=== PATIENT | female | born 1970 | race Caucasian/White ===

== ENCOUNTER 2023-06-16 14:12 | Outpatient (CLI) | payer BC, SELFPAY | END 2023-06-16 14:13 | disposition home or self-care (01) | LOC: NFLDREF 06-17 00:57 | PROVIDERS: PCP Physician Assistant; Visit Provider Physician Assistant | DX: R30.0 Dysuria (principal) | CPT/HCPCS: 87086 ==

== ENCOUNTER 2023-06-19 11:51 | Emergency (ER) | payer BC, SELFPAY ==
[2023-06-19 12:14] VITALS: BP 140/97; PULSE 88; RESP 16; TEMP 37.1; O2SAT 95; BMI 29.0
--- NOTE | 2023-06-19 12:32 | ED_ITS ---
HPI - General Adult General Date Seen: 06/19/23 Chief complaint: Back Injury/Pain Stated complaint: Kidney stone Time Seen by Provider: 06/19/23 12:05 History of Present Illness HPI narrative: Pleasant 53-year-old female who is generally healthy presenting to the ER today with left flank pain. She has been experiencing left flank pain off and on since Tuesday, 5 days ago. She was seen in the urgent care on for these symptoms. She was noting dark colored urine suspicious for hematuria. But no other urinary symptoms. She had urinalysis that she reports showed hematuria but no infection. Medical record confirms that she had a urinalysis on 06/16 that showed hematuria but negative pyuria, negative nitrate). She was diagnosed presumptively with a kidney stone. At that time she was having only mild symptoms so she was discharged home. CT was not available in urgent care and they decided based on how she was doing it was reasonable to observe without transfer to the ER for imaging. Since the other day in the urgent care she has not seen any other visible blood. No other new urinary symptoms. She was having some mild symptoms at that point but also. Where she was asymptomatic. She had another severe way of intense pain that lasted a few hours on Tuesday night and felt again better yesterday with mild symptoms. She had another intense wave of pain overnight last night on Tuesday night into Tuesday morning. She had another wave of severe pain this morning that was so intense she vomited (nonbloody). No other symptoms. No fevers. No diarrhea. No dysuria, urgency, frequency. No fevers. She was having intense pain that brought her back to the ER this afternoon without she is here the pain is markedly improved and is now down to a 2/10. Related Data Home Medications Medication Instructions Recorded Confirmed venlafaxine 37.5 mg 37.5 mg PO DAILY 06/19/23 06/19/23 capsule,extended release 24 hr Previous Rx's Medication Instructions Recorded cephalexin 500 mg capsule 500 mg PO BID #10 caps 06/19/23 hydrocodone 5 mg-acetaminophen 325 1 tab PO Q4-6H PRN pain #14 tabs 06/19/23 mg tablet ondansetron 4 mg disintegrating 4 mg PO Q8H PRN nausea and 06/19/23 tablet vomiting #10 tabs tamsulosin 0.4 mg capsule (Flomax) 0.4 mg PO DAILY #7 caps 06/19/23 Allergies Allergy/AdvReac Type Severity Reaction Status Date / Time No Known Drug Allergies Allergy Verified 06/19/23 12:13 [facility] Medical History Pneumonia ?J18.9 - Pneumonia, unspecified organism (ICD-10) Social History Smoking Status: Never smoker How often do you have a drink containing alcohol: monthly or less AUDIT-C Alcohol total score: 1 Non-prescribed substance use: denies use Exam Narrative: Exam Narrative: Constitutional: Appears well-developed and well-nourished. Alert. Conversant. Non toxic. HENT: Head: Atraumatic. Nose: Nose normal. Mouth/Throat: Oral mucosa is clear and moist. no trismus. Eyes: Conjunctivae normal. EOM normal. Pupils equal, round, and reactive to light. No scleral icterus. Neck: Normal range of motion. Neck supple. No tracheal deviation present. Cardiovascular: Normal rate, regular rhythm. No gallop. No friction rub. No murmur heard. Pulmonary/Chest: Effort normal. No stridor. No respiratory distress. No rib tenderness. Abdominal: Soft. Bowel sounds normal. No distension. No mass. Mild left CVA tenderness. No LQ tenderness. No mass. No rash. No rebound. No guarding. Musculoskeletal: RUE: Normal range of motion. No tenderness. No deformity LUE: Normal range of motion. No tenderness. No deformity RLE: Normal range of motion. No edema. No tenderness. No deformity LLE: Normal range of motion. No edema. No tenderness. No deformity Neurological: Alert and oriented to person, place, and time. Normal strength. CN II-VII intact. No sensory deficit. GCS eye subscore is 4. GCS verbal subscore is 5. GCS motor subscore is 6. Normal coordination Skin: Skin is warm and dry. No rash noted. No pallor. Normal capillary refill. Psychiatric: Normal mood. Normal affect. Const: Vital Signs, click to edit/add: Vital Signs - 24 hr 06/19/23 12:14 06/19/23 15:40 Temperature 98.8 F Pulse Rate [Pulse Oximeter] 88 81 Respiratory Rate 16 Blood Pressure [Le ft Upper Arm] 140/97 H 155/96 H Pulse Oximetry 95 98 Oxygen Delivery Me thod Room Air Course Course ED Course: Recheck- 30-doing well. Pain-free. Sitting up in bed doing computer work. Discussed CT findings. There is a fairly large stone. Consult placed through the [email or web address] access system try to contact outpatient Urology, since her primary care provider is through [email or web address]. Vital Signs Vital signs: Initial Vital Signs Temperature 98.8 F 06/19/23 12:14 Temperature Source Temporal Artery Scan 06/19/23 12:14 Pulse Rate 88 06/19/23 12:14 Respiratory Rate 16 06/19/23 12:14 Blood Pressure 140/97 H 06/19/23 12:14 Blood Pressure Mean 111 H 06/19/23 12:14 Blood Pressure Position Sitting 06/19/23 12:14 Pulse Oximetry 95 06/19/23 12:14 Oxygen Delivery Method Room Air 06/19/23 12:14 Vital Signs Temperature 98.8 F 06/19/23 12:14 Pulse Rate 88 06/19/23 12:14 Respiratory Rate 16 06/19/23 12:14 Blood Pressure 140/97 H 06/19/23 12:14 Pulse Oximetry 95 06/19/23 12:14 Oxygen Delivery Method Room Air 06/19/23 12:14 Temperature 98.8 F 06/19/23 12:14 Pulse Rate 81 06/19/23 15:40 Respiratory Rate 16 06/19/23 12:14 Blood Pressure 155/96 H 06/19/23 15:40 Pulse Oximetry 98 06/19/23 15:40 Oxygen Delivery Method Room Air 06/19/23 12:14 Medications Administered Medications: Discontinued Medications Generic Name Dose Route Start Last Admin Trade Name Freq PRN Reason Stop Dose Admin Cephalexin HCl 500 mg 06/19/23 14:43 06/19/23 14:48 Cephalexin 500 Mg Capsule PO 06/19/23 14:44 500 mg ONCE ONE Administration Medical Decision Making MDM Narrative Medical decision making narrative: This patient presents with right flank and abdominal pain, as well as hematuria in clinic a few days ago. Differential Diagnosis considered includes: Ureterolithiasis, UTI, pyelonephritis, AAA, colitis, diverticulitis, volvulus, appendicitis, cholecystitis, among others. At this point, the evaluation indicates that ureterolithiasis is the cause of the patient's symptoms. The patient is not febrile and has no leukocytosis but does have pyuria on her urinalysis which could mean possible evolving infection. Will treat with antibiotics for UTI. At this point there is clearly no evidence for sepsis or organ dysfunction from infection. The patient's pain is well controlled in ED. The patient is hemodynamically stable in ED. I think the patient is safe for discharge. CT scan shows a fairly large 8 mm stone in the proximal right ureter with some associated hydronephrosis and perinephric stranding. Discussed with urology through the [facility]. They feel they would be able to get the patient in for an expeditious outpatient clinic follow-up to deal with her fairly large proximal stone. Patient is provided with Urology contact information and will call tomorrow. The plan is discharge to home with recheck by urology.They will return to the ED right away if symptoms worsen (e.g Return immediately for fevers greater than 102, increasing pain, other new symptoms develop). Ureterolithiasis precautions for home. Prescriptions for pain control, nausea control, and flomax were provided. The patient's questions were answered. Lab Data Labs: Lab Results 06/19/23 06/19/23 Range/Units 12:20 13:38 WBC 8.10 (4.50-11.00) K/uL RBC 4.53 (4.00-5.20) m/uL Hgb 14.2 (12.0-16.0) gm/dL Hct 42.0 (33.0-51.0) % MCV 93 (80-100) fL MCH 31 (26-34) pg MCHC 34 (32-36) gm/dL RDW Coeff of Sergio 11.8 (11.5-15.5) % Plt Count 264 (140-440) K/uL Neut % (Auto) 73.2 H (42.0-72.0) % Lymph % (Auto) 16.3 L (20-44) % [facility] % (Auto) 8.1 (0.0-11.0) % Eos % (Auto) 2.1 (0.0-7.0) % Baso % (Auto) 0.2 (0.0-3.0) % Neut # (Auto) 5.90 (1.7-7.0) K/uL Lymph # (Auto) 1.30 (0.90-2.90) K/uL [facility] # (Auto) 0.70 (0.00-0.90) K/UL Eos # (Auto) 0.17 (0.00-0.50) K/uL Baso # (Auto) 0.02 (0.00-0.30) K/uL Abs Immat Gran (auto) 0.01 (0.00-0.30) K/uL Imm/Tot Granulo (auto) 0.1 % Sodium 140 (135-149) mmol/L Potassium 5.1 (3.6-5.1) mmol/L Chloride 103 (96-114) mmol/L Carbon Dioxide 27 (20-32) mmol/L Anion Gap 10 (7-15) mEq/L BUN 22 (7-30) mg/dL Creatinine 1.4 (0.5-1.5) mg/dL Estimated Creat Clear 44.15 Estimated GFR 44 ml/min Glucose 100 (60-115) mg/dL Calcium 9.7 (8.4-10.6) mg/dL Urine Color Yellow (Yellow) Urine Appearance Cloudy A (Clear) Urine pH 6.0 (5.0-8.5) Ur Specific [place] >= 1.030 (1.000-1.030) Urine Protein 2+ A (Negative) Urine Glucose (UA) Negative (Negative) Urine Ketones Negative (Negative) Urine Blood 3+ A (Negative) Urine Nitrite Negative (Negative) Urine Bilirubin Negative (Negative) Urine Urobilinogen 0.2 (0.2-1.0) Ur Leukocyte Esterase Trace A (Negative) Urine RBC >100 A (0-2) Urine WBC 25-50 A (0-5) Ur Squamous Epith Cells Few (None-Few) Urine Bacteria Few A (None) Imaging Data CT scan - abdomen: Attestation: I have reviewed the pertinent imaging results. Radiologist's impression: Kidneys: 8 mm obstructing stone at the left ureteropelvic junction (2; 51). Associated mild upstream left hydronephrosis is, left renal edema and perinephric fat stranding consistent with obstructive uropathy. Nonobstructing 6 mm left lower pole minor caliceal stone. IMPRESSION: 8 mm obstructing stone at the left ureteropelvic junction with associated findings consistent with obstructive uropathy described above. 6 mm nonobstructing left lower pole minor calyx nephrolith. Discharge Plan Discharge Clinical Impression: Pyuria, Kidney stone Patient Disposition: Home, Self-Care Condition: Stable Instructions: Kidney Stones (ED) Additional Instructions: Please call the [place] u[facility] office phone number tomorrow morning at 8:00 a.m.. Call [phone]. Tell the receptionist scheduler that you were in the ER today and that we had discussed your case with the on-call urologist (Dr. Pope). Tell the receptionist scheduler that you need an ER follow-up appointment to be seen in one of the urology clinics within the next 1-2 days to be rechecked for your kidney stone because of its size. Please return to the ER right away if you have uncontrolled pain, high fever, nausea vomiting, weakness, or other signs of worsening illness. Your urine sample shows week signs of a possible bladder infection. We are going to put you on antibiotics to prevent this from getting any worse. Remember if you have any signs of fever or chills, you should return to the ER right away for re-evaluation. Start taking cephalexin 500 mg twice daily for the next 5 days to prevent worsening Urinary infection Use Flomax once daily to help give your kidney stone a better chance to pass. To control your pain you can use [id number] medications such as Tylenol or ibuprofen. For severe pain uncontrolled by those meds, use the prescription pain killer ([place]). Use caution with [place] because is can cause drowsiness, constipation, and can be addictive. Use Zofran if needed for nausea. Prescriptions: New tamsulosin [Flomax] 0.4 mg capsule 0.4 mg PO DAILY Qty: 7 2RF cephalexin 500 mg capsule 500 mg PO BID Qty: 10 0RF ondansetron 4 mg tablet,disintegrating 4 mg PO Q8H PRN (Reason: nausea and vomiting) Qty: 10 0RF hydrocodone-acetaminophen 5-325 mg tablet 1 tab PO Q4-6H PRN (Reason: pain) Qty: 14 0RF No Action venlafaxine 37.5 mg capsule,extended release 24hr 37.5 mg PO DAILY Follow Up/Referrals: Provider,Not a Local [Referring] - Stand Alone Forms: [facility] Info Instructions
[2023-06-19 12:36] LABS: Appearance Urine Cloudy (Clear); Bilirubin Urine Negative (Negative); Blood Urine 3+ (Negative); Color Urine Yellow (Yellow); Glucose Urine Negative (Negative); Ketones Urine Negative (Negative); Leukocyte Esterase Urine Trace (Negative); Nitrite Urine Negative (Negative); Protein Urine 2+ (Negative); Specific Gravity Urine >= 1.030 (1.000-1.030); Urobilinogen Urine 0.2 (0.2-1.0)
[2023-06-19 12:51] LABS: Bacteria Urine Few; RBC Urine >100 (0-2); Squamous Epithelial Cell Urine Few (None-Few); WBC Urine 25-50 (0-5)
--- NOTE | 2023-06-19 12:54 | CRLHL7_ITS ---
For Patients: As a result of the Century Cures Act, medical imaging exams and procedure reports are released immediately into your electronic medical record. You may view this report before your referring provider. If you have questions, please contact your health care provider. INDICATION: Left flank and left lower quadrant pain. TECHNIQUE: CT abdomen and pelvis without contrast. COMPARISON: None. FINDINGS: The study is performed without intravenous contrast. This limits sensitivity for detection of abdominal/pelvic pathology, including pathology of the vasculature (specifically evaluation of possible vascular thromboembolism, arterial dissection, stenosis or occlusion), the integrity of the bowel (including bowel wall enhancement) and solid viscera (including detection of focal lesions within the viscera). If there is ongoing concern for otherwise occult pathology such as this, based on the clinical presentation of the patient, consider the risk/benefit of a study with intravenous contrast. Lower chest: Unremarkable. Liver: Normal in size and attenuation. No suspicious masses. Gallbladder and bile ducts: No stones or inflammation. No biliary dilatation. Pancreas: Unremarkable. No mass or inflammation. Spleen: Normal in size. No masses. Adrenal glands: Normal in size. No nodules. Kidneys: 8 mm obstructing stone at the left ureteropelvic junction (2; 51). Associated mild upstream left hydronephrosis is, left renal edema and perinephric fat stranding consistent with obstructive uropathy. Nonobstructing 6 mm left lower pole minor caliceal stone. GI tract: Unremarkable. Normal in caliber. No sign of mass or inflammation. Normal appendix. Vasculature: Abdominal aorta is normal in caliber. Lymph nodes: No lymphadenopathy. Peritoneum/Abdominal Wall: Unremarkable. No sign of mass or infiltration. No free air or significant free fluid. Pelvis: Unremarkable. No pelvic masses. Bones: Unremarkable for age. IMPRESSION: 8 mm obstructing stone at the left ureteropelvic junction with associated findings consistent with obstructive uropathy described above. 6 mm nonobstructing left lower pole minor calyx nephrolith. Please note that evaluation of the vasculature, bowel and solid viscera is limited without intravenous contrast, as discussed above. Please note that all CT scans at this facility use dose modulation, iterative reconstruction, and/or weight-based dosing when appropriate to reduce radiation dose to as low as reasonably achievable. Dictated by Kris Alberto MD @ 06/19/2023 1:50:26 PM (Electronically Signed)
[2023-06-19 14:05] LABS: Basophils Absolute Auto 0.02 K/uL (0.00-0.30); Basophils Percent Auto 0.2 % (0.0-3.0); Eosinophils Absolute Auto 0.17 K/uL (0.00-0.50); Eosinophils Percent Auto 2.1 % (0.0-7.0); Hemoglobin* 14.2 gm/dL (12.0-16.0); Immature Granulocytes Abs Auto 0.01 K/uL (0.00-0.30); Immature Granulocytes Pct Auto 0.1 %; Lymphocytes Percent Auto 16.3 % (20-44); Mean Corpuscular HGB Conc 34 gm/dL (32-36); Mean Corpuscular Hemoglobin 31 pg (26-34); Mean Corpuscular Volume 93 fL (80-100); Monocytes Percent Auto 8.1 % (0.0-11.0); Neutrophils Percent Auto 73.2 % (42.0-72.0); Platelet Count* 264 K/uL (140-440); RDW Coefficient of Variation % 11.8 % (11.5-15.5); Red Blood Count 4.53 m/uL (4.00-5.20)
[2023-06-19 14:08] LABS: Slide Review Reflex No
[2023-06-19 14:21] LABS: Chloride* 103 mmol/L (96-114); Sodium* 140 mmol/L (135-149)
[2023-06-19 14:22] LABS: Potassium* 5.1 mmol/L (3.6-5.1)
[2023-06-19 14:24] LABS: Anion Gap 10 mEq/L (7-15); Carbon Dioxide* 27 mmol/L (20-32); Creatinine* 1.4 mg/dL (0.5-1.5); Est. Creatinine Clearance* 44.15; Estimated Glomerular Filt Rate 44 ml/min
[2023-06-19 14:25] LABS: Blood Urea Nitrogen* 22 mg/dL (7-30); Calcium* 9.7 mg/dL (8.4-10.6); Glucose* 100 mg/dL (60-115)
[2023-06-19] MEDS: cephALEXin 500 MG CAPSULE PO (14:48)
[2023-06-19 15:40] VITALS: BP 155/96; PULSE 81; O2SAT 98
== END 2023-06-19 15:45 | disposition home or self-care (01) ==
PROVIDERS: Emergency Provider Emergency Medicine; PCP Family Medicine
DX: R82.81 Pyuria (principal); N20.0 Calculus of kidney
CPT/HCPCS: 36415; 74176; 80048; 81001; 85025; 87086; 99284; A9270

== ENCOUNTER 2024-03-09 17:15 | Emergency (ER) | payer BC, SELFPAY ==
[2024-03-09 17:23] VITALS: BP 166/102; PULSE 86; RESP 16; TEMP 37.4; O2SAT 97; BMI 29.9
--- NOTE | 2024-03-09 18:42 | ED.GENADULT ---
HPI - General Adult General Time Seen by Provider: 18:42 Date Seen: 03/09/24 Chief complaint: Headache/Migraine Stated complaint: Headache 9 hours, nausea Time Seen by Provider: 03/09/24 18:18 Source: patient and RN notes reviewed Mode of arrival: ambulatory Limitations: no limitations History of Present Illness HPI narrative: This 54-year-old female is coming in with a severe headache that started with a coughing spell this morning. She states she went from no headache to severe headache. He it is in the back of her head and goes into both sides, she feels in the front as well. It is worse in the back of her head. She cannot say that she has neck pain per se but there does seem to be some discomfort in her neck when ask her to move her neck. She notes no double vision, no blurry vision. She has had no numbness tingling or weakness in her extremities. Her arms and legs have been fine. She does not have significant underlying headache disorder, no history of migraine disorder. The headache started about 830 this morning, has been present for about 9 hours. She has had a couple episodes of emesis with it. Patient took cold medicine with Tylenol in it around 2:00 p.m. today. She had taken Advil and Tylenol about 45 minutes prior to this coughing spell that initiated her headache. She did go to her doctor and had COVID testing on Tuesday which was negative. She also tested a week ago which was negative. She did not have any labs or x-ray imaging done per her report, she stated the provider did not think it was necessary, thought she had a viral upper respiratory infection. She has felt clammy since this headache started. No fevers noted. Related Data Home Medications ?Medication ?Instructions ?Recorded ?Confirmed venlafaxine 37.5 mg 37.5 mg PO DAILY 06/19/23 03/09/24 capsule,extended release 24 hr Allergies Allergy/AdvReac Type Severity Reaction Status Date / Time No Known Drug Allergies Allergy Verified 02/28/24 14:27 Review of Systems Status of ROS: Reports: 6 or more systems reviewed and unremarkable except as noted in History and below [facility] Medical History Pneumonia ?J18.9 - Pneumonia, unspecified organism (ICD-10) Social History Smoking Status: Never smoker How often do you have a drink containing alcohol: monthly or less AUDIT-C Alcohol total score: 1 Non-prescribed substance use: denies use Exam Const: Vital Signs, click to edit/add: Vital Signs - 24 hr 03/09/24 17:23 03/09/24 18:48 Temperature 99.4 F Pulse Rate [Pulse Oximeter] 86 Respiratory Rate 16 Blood Pressure [Ri ght Upper Arm] 166/102 H Pulse Oximetry 97 98 Oxygen Delivery Me thod Room Air Mariel is a 54-year-old female that is alert, interactive, no apparent distress. She does look like she is mildly uncomfortable but is still able to carry on a conversation, is very pleasant. Pupils are equal round, conjugate gaze, sclera clear. TMs canals are normal. No drainage from nares. Oropharynx normal. Symmetrical facial function. Neck is supple, no adenopathy, no masses but she does state it increases her headache. Lungs are clear, good air entry, no wheezing or crackles, no tachypnea, she is able to sit up. CV regular rate and rhythm, no murmur, normal S1-S2, no S3-S4. Abdomen is soft, nontender, nondistended, no organomegaly. No focal deficits in her arms or legs, she was ambulatory into the ED of her own accord. Documenting provider has reviewed patient's vital signs: yes Course Course ED Course: Patient seemingly has a cough headache, do need to do head imaging, will do noncontrast head CT followed by CT angio of her head neck. Will get full complement of labs. Will work on pain management. Given that this certainly could be dissection or aneurysm, will avoid Toradol at this point. Reevaluation(s) Time of Reevaluation #1: 20:14 Reevaluation #1: Have reviewed CT imaging reports with patient and labs. Would peer that she has acute sinusitis. Thankfully there is no evidence of any intracranial bleeding, no dissection or vascular abnormality seen. D-dimer did come back normal as well. Her headache did improve some with morphine. We will now give her Toradol. Reviewed that she needs antibiotics, treatment of sinusitis with antibiotics will help with her headache. Her viral triple swab is reviewed and is negative. Will plan on discharge to home with course of Augmentin from [facility]. Vital Signs Vital signs: Initial Vital Signs Temperature 99.4 F 03/09/24 17:23 Temperature Source Temporal Artery Scan 03/09/24 17:23 Pulse Rate 86 03/09/24 17:23 Respiratory Rate 16 03/09/24 17:23 Blood Pressure 166/102 H 03/09/24 17:23 Blood Pressure Mean 123 H 03/09/24 17:23 Blood Pressure Position Sitting 03/09/24 17:23 Pulse Oximetry 97 03/09/24 17:23 Oxygen Delivery Method Room Air 03/09/24 17:23 Vital Signs Temperature 99.4 F 03/09/24 17:23 Pulse Rate 86 03/09/24 17:23 Respiratory Rate 16 03/09/24 17:23 Blood Pressure 166/102 H 03/09/24 17:23 Pulse Oximetry 97 03/09/24 17:23 Oxygen Delivery Method Room Air 03/09/24 17:23 Temperature 99.4 F 03/09/24 17:23 Pulse Rate 86 03/09/24 17:23 Respiratory Rate 16 03/09/24 17:23 Blood Pressure 166/102 H 03/09/24 17:23 Pulse Oximetry 98 03/09/24 18:48 Oxygen Delivery Method Room Air 03/09/24 17:23 Medications Administered Medications: Discontinued Medications Generic Name Dose Route Start Last Admin Trade Name Freq PRN Reason Stop Dose Admin Sodium Chloride 500 mls @ 500 mls/hr 03/09/24 18:50 03/09/24 20:04 0.9 % Sodium Chloride 500 Ml IV 03/09/24 19:49 Infused .Q1H ONE Infusion Ketorolac Tromethamine 15 mg 03/09/24 20:13 03/09/24 20:18 Ketorolac 15 Mg/Ml Inj IVP 03/09/24 20:14 15 mg ONCE ONE Administration Morphine Sulfate 4 mg 03/09/24 18:50 03/09/24 19:04 Morphine 4 Mg/Ml Inj IVP 03/09/24 18:51 4 mg ONCE ONE Administration Ondansetron HCl 4 mg 03/09/24 18:50 03/09/24 19:03 Ondansetron 2 Mg/Ml Inj IVP 03/09/24 18:51 4 mg ONCE ONE Administration Medical Decision Making Lab Data Labs: Lab Results 03/09/24 03/09/24 Range/Units 18:53 19:13 WBC 8.41 (4.50-11.00) K/uL RBC 4.52 (4.00-5.20) m/uL Hgb 14.2 (12.0-16.0) gm/dL Hct 43.1 (33.0-51.0) % MCV 95 (80-100) fL MCH 31 (26-34) pg MCHC 33 (32-36) gm/dL RDW Coeff of Sergio 12.6 (11.5-15.5) % Plt Count 247 (140-440) K/uL Neut % (Auto) 74.2 H (42.0-72.0) % Lymph % (Auto) 15.0 L (20-44) % [place] % (Auto) 9.4 (0.0-11.0) % Eos % (Auto) 1.1 (0.0-7.0) % Baso % (Auto) 0.2 (0.0-3.0) % Neut # (Auto) 6.20 (1.7-7.0) K/uL Lymph # (Auto) 1.30 (0.90-2.90) K/uL [place] # (Auto) 0.80 (0.00-0.90) K/UL Eos # (Auto) 0.09 (0.00-0.50) K/uL Baso # (Auto) 0.02 (0.00-0.30) K/uL Abs Immat Gran (auto) 0.01 (0.00-0.30) K/uL Imm/Tot Granulo (auto) 0.1 % INR 0.99 (0.91-1.10) APTT 31 (23-33) Seconds D-Dimer Quant (PE/DVT) 0.24 (0.00-0.50) ug/ml Sodium 137 (135-149) mmol/L Potassium 4.0 (3.6-5.1) mmol/L Chloride 100 (96-114) mmol/L Carbon Dioxide 27 (20-32) mmol/L Anion Gap 10 (7-15) mEq/L BUN 16 (7-30) mg/dL Creatinine 0.7 (0.5-1.5) mg/dL Estimated Creat Clear 84.01 Estimated GFR 101 ml/min Glucose 113 (60-115) mg/dL Calcium 9.5 (8.4-10.6) mg/dL Total Bilirubin 0.5 (0.1-1.5) mg/dL AST 31 (12-35) U/L ALT 30 (4-35) U/L Alkaline Phosphatase 34 L (40-150) U/L C-Reactive Protein 3.8 H (0.5-1.0) mg/dL Total Protein 8.0 (6.0-8.3) g/dL Albumin 5.0 (3.3-5.0) g/dL SARS-CoV-2 (PCR) Negative SARS-CoV-2 (Negative) Influenza Type A (PCR) Negative PCR FLU A (Negative) Influenza Type B (PCR) Negative PCR FLU B (Negative) RSV (PCR) Negative PCR RSV (Negative) Imaging Data CT scan - head: Attestation: I have reviewed the pertinent imaging results. Radiologist's impression: Patient: MARIEL PIERSON Facility:?[facility] Patient ID:?[id number] Site Patient ID:?[id number]. Site :?[id number] Study:?CT-Head W/O-03/09/2024 7:28:32 PM Ordering Physician:Cynthia Herrera Final Report: Indication: Technique: CT of the brain was performed without intravenous contrast. Comparison: None relevant available at this institution. Findings: No acute blurring of the phan-white differentiation. There is no intracranial hemorrhage. The ventricles are proportionate to the cerebral sulci. The 4th ventricle is midline. Basal cisterns appear patent. No abnormal extra-axial fluid collection identified. There is no intracranial mass, mass effect or midline shift identified. No depressed calvarial fracture. Mild paranasal sinus mucosal disease with air-fluid levels in the maxillary sinuses. Impression: 1. No acute intracranial process. 2. Mild paranasal sinus mucosal disease with air-fluid levels. Correlate for acute sinusitis. Please note that all CT scans at this facility use dose modulation, iterative reconstruction, and/or weight-based dosing when appropriate to reduce radiation dose to as low as reasonably achievable. Dictated by Magnus Moeller MD @ 03/09/2024 7:49:02 PM (Electronic Signature) CT- Other: Attestation: I have reviewed the pertinent imaging results. Radiologist's impression: Patient: MARIEL PIERSON Facility:?[facility] Patient ID:?[id number] Site Patient ID:?[id number]. Site :?1970 Study:?CT-Head Angio W/ 95CC [id number]/25/2024 7:28:23 PM Ordering Physician:?Eric Herrera Preliminary Report: Preliminary Report: : CTA head: No proximal intracranial arterial occlusions, filling defects or high-grade stenoses. CTA neck: No high-grade stenosis or filling defects are identified in the cervical carotid systems or cervical vertebral arteries. No dissection identified. Dictated by Maguns Moeller MD @ 03/09/2024 7:46:20 PM Read by:?Magnus Moeller MD @03/09/2024 7:46:41 PM Discharge Plan Discharge Clinical Impression: Headache Qualifiers: Headache type: primary cough headache Qualified Code(s): G44.83 - Primary cough headache Sinusitis Qualifiers: Sinusitis location: maxillary Chronicity: acute Recurrence: non-recurrent Qualified Code(s): J01.00 - Acute maxillary sinusitis, unspecified Patient Disposition: Home, Self-Care Condition: Stable Instructions: Sinusitis (ED), General Headache (ED) Additional Instructions: Start Augmentin 875 mg and take twice day for a total of 10 days to treat sinusitis. Do recommend getting a nasal steroid such is fluticasone or other [id number] nasal steroid, follow package directions for use in use for the next 1-2 weeks. Can use other [id number]-[id number] cough and cold medicines her directions. May need some ongoing treatment with Tylenol and or ibuprofen, follow bottle directions for dosing but be careful to not overdose of using other cold medicines that contain these. If you are not improving over the next week, feel you are worsening at any point or have further concerns, please seek re-evaluation. Your headache may persist for a while until treatment of the sinusitis is improving. Activity Level: Activity as Tolerated Prescriptions: No Action venlafaxine 37.5 mg capsule,extended release 24hr 37.5 mg PO DAILY Follow Up/Referrals: Re Miguel MD [Primary Care Provider] - Stand Alone Forms: [employer] Info Instructions
[2024-03-09 18:48] VITALS: O2SAT 98
--- NOTE | 2024-03-09 18:48 | CRLHL7_ITS ---
For Patients: As a result of the Century Cures Act, medical imaging exams and procedure reports are released immediately into your electronic medical record. You may view this report before your referring provider. If you have questions, please contact your health care provider. Indication: Technique: CT of the brain was performed without intravenous contrast. Comparison: None relevant available at this institution. Findings: No acute blurring of the phan-white differentiation. There is no intracranial hemorrhage. The ventricles are proportionate to the cerebral sulci. The 4th ventricle is midline. Basal cisterns appear patent. No abnormal extra-axial fluid collection identified. There is no intracranial mass, mass effect or midline shift identified. No depressed calvarial fracture. Mild paranasal sinus mucosal disease with air-fluid levels in the maxillary sinuses. Impression: 1. No acute intracranial process. 2. Mild paranasal sinus mucosal disease with air-fluid levels. Correlate for acute sinusitis. Please note that all CT scans at this facility use dose modulation, iterative reconstruction, and/or weight-based dosing when appropriate to reduce radiation dose to as low as reasonably achievable. Dictated by Magnus Moeller MD @ 03/09/2024 7:49:02 PM (Electronically Signed)
--- NOTE | 2024-03-09 18:59 | CRLHL7_ITS ---
For Patients: As a result of the Century Cures Act, medical imaging exams and procedure reports are released immediately into your electronic medical record. You may view this report before your referring provider. If you have questions, please contact your health care provider. CLINICAL HISTORY: Severe headache after coughing. TECHNIQUE: Standard helical CT image acquisition through the neck was performed after intravenous contrast bolus enhancement. 3D and MIP reconstructions were performed at a separate workstation and permanently archived. COMPARISON: None available. FINDINGS: The origins of the great vessels from the aortic arch are patent. The common carotid arteries are patent. No significant luminal stenoses of the proximal ICAs by NASCET criteria. The more distal cervical segments of the ICAs are patent. The origins and cervical segments of the vertebral arteries are patent. IMPRESSION: Patent cervical arterial vasculature without hemodynamically significant luminal stenosis. Please note that all CT scans at this facility use dose modulation, iterative reconstruction, and/or weight-based dosing when appropriate to reduce radiation dose to as low as reasonably achievable. Dictated by Yaakov Faustin MD @ 03/10/2024 12:19:44 PM (Electronically Signed)
--- NOTE | 2024-03-09 18:59 | CRLHL7_ITS ---
For Patients: As a result of the Century Cures Act, medical imaging exams and procedure reports are released immediately into your electronic medical record. You may view this report before your referring provider. If you have questions, please contact your health care provider. CLINICAL HISTORY: Severe headache after coughing. TECHNIQUE: Standard helical CT image acquisition through the head following the administration of intravenous contrast was performed. 3D and MIP reconstructions were performed at a separate workstation and permanently archived. COMPARISON: None available. FINDINGS: No intracranial proximal large vessel occlusion or flow-limiting luminal stenosis. No evidence of cerebral aneurysm. No findings to suggest an arterial-venous shunting lesion. The major dural venous sinuses and deep venous system are patent. IMPRESSION: No intracranial proximal large vessel occlusion, flow-limiting luminal stenosis, or cerebral aneurysm. Please note that all CT scans at this facility use dose modulation, iterative reconstruction, and/or weight-based dosing when appropriate to reduce radiation dose to as low as reasonably achievable. Dictated by Yaakov Faustin MD @ 03/10/2024 12:21:53 PM (Electronically Signed)
[2024-03-09] MEDS: ONDANSETRON 2 MG/ML inj 4 MG IVP (19:03)
[2024-03-09] MEDS: 0.9 % SODIUM CHLORIDE 500 ML 500 ML IV (19:03)
[2024-03-09] MEDS: MORPHINE 4 MG/ML INJ IVP (19:04)
[2024-03-09 19:21] LABS: Basophils Absolute Auto 0.02 K/uL (0.00-0.30); Basophils Percent Auto 0.2 % (0.0-3.0); Eosinophils Absolute Auto 0.09 K/uL (0.00-0.50); Eosinophils Percent Auto 1.1 % (0.0-7.0); Hematocrit 43.1 % (33.0-51.0); Hemoglobin* 14.2 gm/dL (12.0-16.0); Immature Granulocytes Abs Auto 0.01 K/uL (0.00-0.30); Immature Granulocytes Pct Auto 0.1 %; Mean Corpuscular HGB Conc 33 gm/dL (32-36); Mean Corpuscular Hemoglobin 31 pg (26-34); Mean Corpuscular Volume 95 fL (80-100); Monocytes Percent Auto 9.4 % (0.0-11.0); Neutrophils Percent Auto 74.2 % (42.0-72.0); Platelet Count* 247 K/uL (140-440); RDW Coefficient of Variation % 12.6 % (11.5-15.5); Red Blood Count 4.52 m/uL (4.00-5.20); White Blood Count* 8.41 K/uL (4.50-11.00)
[2024-03-09 19:25] LABS: Slide Review Reflex No
[2024-03-09 19:40] LABS: Chloride* 100 mmol/L (96-114); Sodium* 137 mmol/L (135-149)
[2024-03-09 19:43] LABS: Alanine Aminotransferase* 30 U/L (4-35); Alkaline Phosphatase* 34 U/L (40-150); Anion Gap 10 mEq/L (7-15); Aspartate Amino Transferase* 31 U/L (12-35); Bilirubin Total* 0.5 mg/dL (0.1-1.5); Blood Urea Nitrogen* 16 mg/dL (7-30); Carbon Dioxide* 27 mmol/L (20-32); Creatinine* 0.7 mg/dL (0.5-1.5); Est. Creatinine Clearance* 84.01; Estimated Glomerular Filt Rate 101 ml/min
[2024-03-09 19:44] LABS: Calcium* 9.5 mg/dL (8.4-10.6); Glucose* 113 mg/dL (60-115)
[2024-03-09 19:46] LABS: PCR FLU A Negative PCR FLU A (Negative); PCR FLU B Negative PCR FLU B (Negative); PCR RSV Negative PCR RSV (Negative); SARS PCR* Negative SARS-CoV-2 (Negative)
[2024-03-09 19:46] LABS: C Reactive Protein* 3.8 mg/dL (0.5-1.0); Partial Thromboplastin Time* 31 Seconds (23-33)
[2024-03-09 19:47] LABS: INR 0.99 (0.91-1.10); Prothrombin Time 13.6 Seconds
[2024-03-09] MEDS: KETOROLAC 15 MG/ML inj IVP (20:18)
[2024-03-09 20:32] LABS: D Dimer Quantitative* < 0.27 ug/ml (0.00-0.50)
== END 2024-03-09 20:44 | disposition home or self-care (01) ==
PROVIDERS: Emergency Provider Family Medicine; PCP Family Medicine
DX: G44.83 Primary cough headache (principal); J01.00 Acute maxillary sinusitis, unspecified
CPT/HCPCS: 36415; 70450; 70496; 70498; 80053; 85025; 85379; 85610; 85730; 86140; 87631; 94761; 96374; 96375; 99284; J1885; J2270; J2405; J7030; Q9967